=== PATIENT | male | born 1965 | race Caucasian/White ===

== ENCOUNTER 2017-08-24 11:56 | Emergency (ER) | payer BC ==
[~2017-08-24] VITALS: Ht 177.8 cm; Wt 98.0 kg
[~2017-08-24 11:56] MED LIST: INDO-24 PO; LANS15CA6 PO; METO25TA3 PO; PPTBS PO
[2017-08-24 12:15] VITALS: TEMP 37.4; Ht 177.8 cm; Wt 98.0 kg
[2017-08-24] MEDS ORDERED: KETOROLAC TROMETHAMINE 60 MG/2 ML VIAL IM STA (12:37)
[2017-08-24] MEDS ORDERED: OXYCODONE HCL IR 5 MG TAB (IMMEDIATE RELEASE) PO STA (12:37)
[2017-08-24] MEDS ORDERED: DEXAMETHASONE SOD INJ 10 MG/ML VIAL IM ONE (12:45)
[2017-08-24] MEDS ORDERED: TRAM-10 PO (12:48)
[2017-08-24] MEDS ORDERED: LISI-461 PO (12:48)
[2017-08-24] MEDS ORDERED: CYCL10TA6 PO (12:48)
--- NOTE | 2017-08-24 13:23 | DIAGNOSTIC IMAGING REPORT ---
L-SPINE MIN 4 VIEWS ROUTINE CLINICAL HISTORY: Left back pain COMPARISON STUDY: No previous studies for comparison. FINDINGS: No acute fractures or subluxations are visualized. There is a 5 mm calcification within the left mid abdomen at the L2 level. Given the history of back pain this may represent a proximal left ureteral calculus. CT scanning could be obtained for confirmation as deemed clinically necessary. There is no pathologic bowel dilatation. IMPRESSION: 1. No fractures or subluxations identified 2. 5 mm calcification at the L2 level. Given the history of left-sided pain, this may represent a proximal left ureteral calculus . Electronically signed by: Brock Blackwood M.D. 08/24/2017 1:22 PM Dictated Date/Time: 08/24/2017 1:20 PM
[2017-08-24] MEDS ORDERED: MoRPHine SULFATE 10 MG/ML CARP/VIAL IV STA (13:38)
[2017-08-24] MEDS ORDERED: TAMSULOSIN HCL 0.4 MG CAP PO ONE (13:45)
[2017-08-24] MEDS ORDERED: SODIUM CHLORIDE 0.9% 1000ML 1,000 ML IV STA (13:46)
[2017-08-24] MEDS ORDERED: ONDANSETRON INJ 2 MG/ML 2 ML VIAL IV STA (13:46)
[2017-08-24 13:58] LABS: BASO % 0.5 %; BASO ABS # 0.05 K/uL (0-0.2); COMPLETE YES; EOS % 3.4 %; HEMATOCRIT 46.1 % (42-52); IG% 0.2 %; LYMPH % 23.2 %; LYMPH ABS # 2.19 K/uL (1.2-3.4); MEAN CELL VOLUME 84.3 fL (80-100); MEAN CORPUSCULAR HEMOGLOBIN 29.8 pg (25-34); MEAN CORPUSCULAR HGB CONC 35.4 g/dl (32-36); MEAN PLATELET VOLUME 9.4 fL (7.4-10.4); MONO % 8.6 %; NEUT % 64.1 %; PLATELET COUNT 224 K/uL (130-400); RED BLOOD COUNT 5.47 M/uL (4.7-6.1); WHITE BLOOD COUNT 9.45 K/uL (4.8-10.8)
[2017-08-24 14:18] LABS: BUN/CREATININE RATIO 10.2 (10-20); CALCIUM 8.8 mg/dl (8.5-10.1); CREATININE 1.25 mg/dl (0.60-1.40)
--- NOTE | 2017-08-24 14:28 | DIAGNOSTIC IMAGING REPORT ---
CT SCAN OF THE ABDOMEN AND PELVIS WITHOUT CONTRAST CLINICAL HISTORY: Left flank pain COMPARISON STUDY: 02/26/2015 TECHNIQUE: CT scan of the abdomen and pelvis was performed from the lung bases to the proximal femurs. Images are reviewed in the axial, sagittal, and coronal planes. IV contrast was not administered for this examination. A dose lowering technique was utilized adhering to the principles of ALARA. CT DOSE: 1086.92 mGycm FINDINGS: Lower chest: The heart is normal in size and configuration, without pericardial effusion. The lung bases and pleural spaces are clear. Liver: There is hepatic steatosis. No focal masses are visualized Gallbladder: Unremarkable. Spleen: Normal in size and attenuation. Pancreas: Unremarkable. Adrenal glands: Unremarkable. Kidneys: There are punctate left renal calculi. There is a 5 mm calculus at the level the left ureteropelvic junction. Multiple punctate right renal calculi are also evident. Bowel: There are no transition zones indicate bowel obstruction. There is colonic diverticulosis. There are no acute peridiverticular inflammatory changes. There are no findings to indicate acute appendicitis. The appendix appears normal. Peritoneum: There is no intraperitoneal free air or abdominal ascites. There is a small fat-containing left inguinal hernia. Vasculature: The abdominal aorta is normal in course and caliber. Adenopathy: None. Pelvic viscera: The bladder, and pelvic viscera are unremarkable. Skeletal structures: No destructive osseous lesions are seen. IMPRESSION: 1. Bilateral nephrolithiasis 2. 5 mm calculus at the level of the left ureteropelvic junction. No significant hydronephrosis 3. No evidence of bowel obstruction. No evidence of free air 4. Normal appendix 5. Hepatic steatosis Electronically signed by: Brock Blackwood M.D. 08/24/2017 2:27 PM Dictated Date/Time: 08/24/2017 2:23 PM
[2017-08-24] MEDS ORDERED: TAMS0.4C38 PO (15:21)
[2017-08-24] MEDS ORDERED: ONDA4TAB10 SL (15:21)
[2017-08-24] MEDS ORDERED: OXYC1TAB3 PO (15:21)
--- NOTE | 2017-08-24 15:23 | EMERGENCY ROOM VISIT NOTE ---
History First contact with patient: 12:31 Chief Complaint: BACK PAIN Stated Complaint: BACK OUT History of Present Illness The patient is a 52 year old male who presents to the Emergency Room with complaints of left-sided low back pain. The patient states that he just bent over today and felt a "pop" in his back. Since that time he has pain in the left side of his back into his buttocks. The patient states that he took 2 tramadol and Flexeril 4-5 hours ago without any relief of the pain. He rates it at a 10 out of 10. The patient denies any pain radiating down to his toes or any numbness and tingling. The patient denies any nausea or vomiting or any abdominal pain. The patient denies any urinary symptoms of frequency, urgency, dysuria or hematuria. The patient denies any history of back surgery or any history of kidney stones. Review of Systems 10 system review was performed and was negative unless stated otherwise history of present illness. Past Medical/Surgical History Medical Problems: (1) Diverticulitis of sigmoid colon (2) Esophageal Reflux (3) Gastroesophageal reflux disease (4) Hypercholesterolemia (5) Hypertension Nos (6) Normal colonoscopy Surgical Problems: (1) H/O colectomy Family History Cancer FH: diabetes mellitus FH: hypertension Gallbladder disease Heart disease Social History Smoking Status: Never Smoker Alcohol Use: none Marital Status: Housing Status: lives with family Occupation Status: employed Current/Historical Medications Scheduled Lansoprazole (Prevacid), 15 MG PO QAM Lisinopril (Lisinopril), 10 MG PO DAILY Scheduled PRN Bismuth Subsalicylate (Pepto-Bismol Susp), 30 ML PO PRN UD PRN for Diarrhea Cyclobenzaprine Hcl (Flexeril), 10 MG PO TID PRN for Muscle Spasms Metoprolol Succ (Toprol Xl) (Toprol-Xl), 25 MG PO DAILY PRN for Tramadol (Ultram), 100 MG PO Q4H PRN for Pain Physical Exam Vital Signs Date Time Temp Pulse Resp B/P (MAP) Pulse Ox O2 Delivery O2 Flow Rate FiO2 08/24/17 14:35 94 18 129/88 94 08/24/17 12:15 37.4 115 18 141/103 97 Room Air Physical Exam GENERAL: 52-year-old white male appears uncomfortable secondary to pain. MENTAL Status: Alert and oriented 3. MOUTH: Mucosa is moist NECK: Supple, no lymphadenopathy noted. No carotid bruits noted. LUNGS: Clear auscultation without wheezes rales or rhonchi. CARDIAC: Regular rate and rhythm without murmur. Pulses is full and equal throughout. BACK: No CVA tenderness noted. ABDOMEN: Positive bowel sounds all 4 quadrants. Soft, nontender to palpation without organomegaly or masses. LUMBAR SPINE: No gross bony deformity noted. The patient has mild tenderness palpation over the left paravertebral region. Right side nontender. Cannot assess range of motion secondary to patient's pain. Negative straight leg raise bilaterally. Bilateral patellar reflexes are 2+. EXTREMITIES: No cyanosis or edema noted. Medical Decision & Procedures ER Provider Diagnostic Interpretation: CT SCAN OF THE ABDOMEN AND PELVIS WITHOUT CONTRAST CLINICAL HISTORY: Left flank pain COMPARISON STUDY: 02/26/2015 TECHNIQUE: CT scan of the abdomen and pelvis was performed from the lung bases to the proximal femurs. Images are reviewed in the axial, sagittal, and coronal planes. IV contrast was not administered for this examination. A dose lowering technique was utilized adhering to the principles of ALARA. CT DOSE: 1086.92 mGycm FINDINGS: Lower chest: The heart is normal in size and configuration, without pericardial effusion. The lung bases and pleural spaces are clear. Liver: There is hepatic steatosis. No focal masses are visualized Gallbladder: Unremarkable. Spleen: Normal in size and attenuation. Pancreas: Unremarkable. Adrenal glands: Unremarkable. Kidneys: There are punctate left renal calculi. There is a 5 mm calculus at the level the left ureteropelvic junction. Multiple punctate right renal calculi are also evident. Bowel: There are no transition zones indicate bowel obstruction. There is colonic diverticulosis. There are no acute peridiverticular inflammatory changes. There are no findings to indicate acute appendicitis. The appendix appears normal. Peritoneum: There is no intraperitoneal free air or abdominal ascites. There is a small fat-containing left inguinal hernia. Vasculature: The abdominal aorta is normal in course and caliber. Adenopathy: None. Pelvic viscera: The bladder, and pelvic viscera are unremarkable. Skeletal structures: No destructive osseous lesions are seen. IMPRESSION: 1. Bilateral nephrolithiasis 2. 5 mm calculus at the level of the left ureteropelvic junction. No significant hydronephrosis 3. No evidence of bowel obstruction. No evidence of free air 4. Normal appendix 5. Hepatic steatosis Electronically signed by: Brock Blackwood M.D. 08/24/2017 2:27 PM L-SPINE MIN 4 VIEWS ROUTINE CLINICAL HISTORY: Left back pain COMPARISON STUDY: No previous studies for comparison. FINDINGS: No acute fractures or subluxations are visualized. There is a 5 mm calcification within the left mid abdomen at the L2 level. Given the history of back pain this may represent a proximal left ureteral calculus. CT scanning could be obtained for confirmation as deemed clinically necessary. There is no pathologic bowel dilatation. IMPRESSION: 1. No fractures or subluxations identified 2. 5 mm calcification at the L2 level. Given the history of left-sided pain, this may represent a proximal left ureteral calculus . Electronically signed by: Brock Blackwood M.D. 08/24/2017 1:22 PM Laboratory Results 08/24/17 13:50 Red Blood Count 5.47, Mean Corpuscular Volume 84.3, Mean Corpuscular Hemoglobin 29.8, Mean Corpuscular Hemoglobin Concent 35.4, Mean Platelet Volume 9.4, Neutrophils (%) (Auto) 64.1, Lymphocytes (%) (Auto) 23.2, Monocytes (%) (Auto) 8.6, Eosinophils (%) (Auto) 3.4, Basophils (%) (Auto) 0.5, Neutrophils # (Auto) 6.06, Lymphocytes # (Auto) 2.19, Monocytes # (Auto) 0.81, Eosinophils # (Auto) 0.32, Basophils # (Auto) 0.05 08/24/17 13:50 Test 08/24/17 13:50 White Blood Count 9.45 K/uL (4.8-10.8) Red Blood Count 5.47 M/uL (4.7-6.1) Hemoglobin 16.3 g/dL (14.0-18.0) Hematocrit 46.1 % (42-52) Mean Corpuscular Volume 84.3 fL (80-100) Mean Corpuscular Hemoglobin 29.8 pg (25-34) Mean Corpuscular Hemoglobin Concent 35.4 g/dl (32-36) Platelet Count 224 K/uL (130-400) Mean Platelet Volume 9.4 fL (7.4-10.4) Neutrophils (%) (Auto) 64.1 % Lymphocytes (%) (Auto) 23.2 % Monocytes (%) (Auto) 8.6 % Eosinophils (%) (Auto) 3.4 % Basophils (%) (Auto) 0.5 % Neutrophils # (Auto) 6.06 K/uL (1.4-6.5) Lymphocytes # (Auto) 2.19 K/uL (1.2-3.4) Monocytes # (Auto) 0.81 K/uL (0.11-0.59) Eosinophils # (Auto) 0.32 K/uL (0-0.5) Basophils # (Auto) 0.05 K/uL (0-0.2) RDW Standard Deviation 41.1 fL (36.4-46.3) RDW Coefficient of Variation 13.4 % (11.5-14.5) Immature Granulocyte % (Auto) 0.2 % Immature Granulocyte # (Auto) 0.02 K/uL (0.00-0.02) Anion Gap 7.0 mmol/L (3-11) Est Creatinine Clear Calc Drug Dose 82.1 ml/min Estimated GFR () 76.8 Estimated GFR (Non- 66.2 BUN/Creatinine Ratio 10.2 (10-20) Calcium Level 8.8 mg/dl (8.5-10.1) Medications Administered Medications (Trade) Dose Ordered Sig/Iris Route Start Time Stop Time Status Last Admin Dose Admin Dexamethasone Sodium Phosphate (Decadron Inj) 10 mg NOW ONCE IM 08/24/17 12:45 08/24/17 12:46 DC 08/24/17 12:52 10 MG Ketorolac Tromethamine (Toradol Inj) 60 mg NOW STAT IM 08/24/17 12:37 08/24/17 12:39 DC 08/24/17 12:52 60 MG Oxycodone HCl (Roxicodone Immediate Rel Tab) 10 mg NOW STAT PO 08/24/17 12:37 08/24/17 12:39 DC 08/24/17 12:53 10 MG Morphine Sulfate (MoRPHine SULFATE INJ) 6 mg NOW STAT IV 08/24/17 13:38 08/24/17 13:40 DC 08/24/17 13:57 6 MG Tamsulosin HCl (Flomax Cap) 0.4 mg NOW ONCE PO 08/24/17 13:45 10/22/17 13:46 DC 08/24/17 13:56 0.4 MG Sodium Chloride 1,000 ml @ 999 mls/hr Q1H1M STAT IV 08/24/17 13:46 08/24/17 14:46 DC 08/24/17 13:46 999 MLS/HR Ondansetron HCl (Zofran Inj) 4 mg NOW STAT IV 08/24/17 13:46 08/24/17 13:47 DC 08/24/17 13:56 4 MG ED Course The patient was evaluated. The patient was given Decadron 10 mg IM and Toradol 60 mg IM and OxyIR 10 mg by mouth for pain. X-ray of the lumbar spine was ordered interpreted by the radiologist as above with findings consistent with a possible left ureteral calculi. The patient was reevaluated and was not feeling any better. I told him of the x-ray findings. IV access was obtained. CBC and differential, renal profile was ordered. Urinalysis was ordered. The patient was given Flomax 0.4 mg by mouth, Zofran 4 mg IV push and morphine [address] stone study was ordered and interpreted by the radiologist as above with a 5 mm stone at the left UP junction without any hydronephrosis noted . labs are reviewed and were unremarkable. The patient was unable to give a urine sample while in the ER. The patient was reevaluated on several occasion. The patient was feeling better at time of discharge. He was discharged home with his driving. Medical Decision Differential diagnosis include lumbar strain, UTI, pyelonephritis, ureteral calculi, compression fracture, spinal stenosis, sciatica [place] Drug Monitoring Program Search Results: patient reviewed within database Medication Reconcilliation Current Medication List: was personally reviewed by ks Blood Pressure Screening Patient's blood pressure: Normal blood pressure Impression Primary Impression: Kidney stone on left side Departure Information Dispostion Home / Self-Care Condition GOOD Prescriptions Ondasetron Odt (ZOFRAN ODT) 4 Mg Tab 4 MG SL Q6H for Nausea, #10 TAB Prov: Lisa Curtis PA-C 08/24/17 Oxycodone Immediate Rel Tab (ROXICODONE IR) 5 Mg Tab 1-2 TAB PO Q4H Y for Pain, #24 TAB Prov: Lisa Crutis PA-C 08/24/17 Tamsulosin Hcl (FLOMAX) 0.4 Mg Cap 0.4 MG PO DAILY for 7 Days, #7 CAP Prov: Lisa Curtis PA-C 08/24/17 Referrals Grayson Guzmán M.D. (PCP) Drew Vogel M.D. Forms HOME CARE DOCUMENTATION FORM, IMPORTANT VISIT INFORMATION Patient Instructions Kidney Stones - [facility], [facility], Later [facility] Additional Instructions Drink a lot of water. Ibuprofen 6 mg every 6 hours with food for pain. Take OxyIR as directed for more severe pain. Do not drive while taking the OxyIR. Take Flomax daily as directed. Strain all urine. Call Dr. Vogel tomorrow for follow-up appointment. If you experience any intractable low back pain, uncontrolled nausea vomiting, fevers return to ER immediately.
[2017-08-24 15:36] VITALS: BP 159/92; PULSE 96; O2SAT 97
[2017-09-05] MEDS ORDERED: ONDA4TAB65 PO (07:34)
[2017-09-05] MEDS ORDERED: OXYC1TAB3 PO ×2 (07:40→07:44)
[2017-09-12] MEDS ORDERED: OXYC7.5T65 PO (07:39)
== END 2017-08-24 15:38 | disposition home or self-care (01) ==
LOC: C.EDB 11:57 → C.EDD 15:38
DX: N20.0 Calculus of kidney (principal); K21.9 Gastro-esophageal reflux disease without esophagitis; E78.5 Hyperlipidemia, unspecified; I10 Essential (primary) hypertension; Z90.49 Acquired absence of other specified parts of digestive tract; Z83.3 Family history of diabetes mellitus; Z82.49 Family history of ischemic heart disease and other diseases of the circulatory system

== ENCOUNTER → 2017-08-27 | Outpatient (CLI) | payer BC ==
[~2017-08-27] MED LIST changes: +CYCL10TA6 PO; -INDO-24 PO; +LISI-461 PO; +ONDA4TAB10 SL; +OXYC1TAB3 PO; +TAMS0.4C38 PO; +TRAM-10 PO
--- NOTE | 2017-08-27 12:26 | DIAGNOSTIC IMAGING REPORT ---
CHEST 2 VIEWS ROUTINE CLINICAL HISTORY: N20.0 Calculus of [id number] nephrocalcinosis. Preoperative evaluation. COMPARISON STUDY: 05/10/2015 FINDINGS: The bones soft tissues and hemidiaphragms are normal. The cardiomediastinal silhouette is normal. The lungs are clear. The pulmonary vasculature is normal. IMPRESSION: Negative chest. The above report was generated using voice recognition software. It may contain grammatical, syntax or spelling errors. Electronically signed by: Kulwinder Curtis M.D. 08/27/2017 12:25 PM Dictated Date/Time: 08/27/2017 12:24 PM
== END | disposition home or self-care (01) ==
LOC: C.CPL 11:52
PROVIDERS: ATTEND Urology
DX: N20.0 Calculus of kidney (principal)

== ENCOUNTER → 2017-09-11 | Outpatient (CLI) | payer BC ==
[~2017-09-11] MED LIST changes: -CYCL10TA6 PO; -ONDA4TAB10 SL; +ONDA4TAB65 PO; +OXYC7.5T65 PO; -PPTBS PO; -TAMS0.4C38 PO; -TRAM-10 PO
--- NOTE | 2017-09-11 18:39 | DIAGNOSTIC IMAGING REPORT ---
KUB CLINICAL HISTORY: Nephrolithiasis. FINDINGS: 2 AP supine abdominal radiographs are correlated with abdominal CT dated 08/24/2017. There is a nonobstructed abdominal bowel gas pattern. Mild to moderate colonic fecal retention is observed. There is a 7 mm calculus projecting over the left proximal ureter at the level of the L2 transverse process. At least 2 additional punctate calculi are seen projecting over the left kidney. A punctate calculus is also seen projecting over the lower pole of the right kidney. The bony structures appear intact. IMPRESSION: 1. A 7 mm calculus projects over the left proximal ureter at the level of the L2 transverse process. 2. Additional punctate calculi are noted in both kidneys. Electronically signed by: Navin Lynn M.D. 09/11/2017 6:38 PM Dictated Date/Time: 09/11/2017 6:36 PM
== END | disposition home or self-care (01) ==
LOC: C.RAD 18:03
PROVIDERS: ATTEND Urology
DX: N20.2 Calculus of kidney with calculus of ureter (principal)

== ENCOUNTER → 2017-09-12 | Day surgery (SDC) | payer BC ==
[2017-09-05 07:35] VITALS: Ht 177.8 cm; Wt 97.7 kg
[~2017-09-12] VITALS: Ht 177.8 cm; Wt 97.7 kg
[~2017-09-12] MED LIST changes: +ATROPINE SULFATE 0.1 MG/ML 5ML SYR IV PRN; +CIPROFLOXACIN 400MG / D5W IV SCH; +EpHEDrine SULFATE INJ 50 MG/ML AMP IV PRN; +FENTANYL CITRATE INJ 50 MCG/1 ML 2 ML VIAL ONE; +HydrALAZINE HCL 20 MG/ML VIAL IV. STA; +HydrALAZINE HCL 20 MG/ML VIAL ONE; +LACTATED RINGER'S 1000ML 1,000 ML IV SCH; +LIDOCAINE HCL 2% 2 ML VIAL (20MG/ML) ONE; +MIDAZOLAM HCL 1 MG/ML 2ML VIAL ONE; +ONDANSETRON INJ 2 MG/ML 2 ML VIAL IV PRN; +OXYCODONE/ACETAMINOPHEN 5-325 TAB PO PRN; +PROPOFOL IV EMULSION 10 MG/ML 20 ML VIAL IV ONE
--- NOTE | 2017-09-12 06:54 | History & Physical Bridge Note ---
H&P Re-Evaluation Bridge Note: I have examined the patient, reviewed the History & Physical and in the interval since the performance of the History & Physical I have noted the following changes of clinical significance: No changes noted
--- NOTE | 2017-09-12 07:42 | Discharge Instructions ---
Discharge Instructions Date of Service Sep 12, 2017. Admission Reason for Admission: Stones Discharge Discharge Diagnosis / Problem: L upper ureteral stone s/p ESWL Discharge Goals Goal(s): Decrease discomfort, Improve function, Improve disease control, Therapeutic intervention Activity Recommendations Activity Limitations: as noted below Lifting Limitations: no more than 25 pounds, gradually increase as tolerated Exercise/Sports Limitations: rest today, gradually increase as tolerated May Resume Sexual Activity: when tolerated Shower/Bathe: no limitations Driving or Machine Use: resume 1 day after discharge . Instructions / Follow-Up Instructions / Follow-Up As scheduled in office with KUB Xray beforehand Discharge Diet Recommended Diet: Regular Diet (good fluid intake) Procedures Procedures Performed: Left Extracorporeal Shock Wave Lithotripsy - Ureteral Pending Studies Studies pending at discharge: yes List of pending studies: Follow-up KUB as ordered Medical Emergencies . Who to Call and When: Medical Emergencies: If at any time you feel your situation is an emergency, please call 911 immediately. . Non-Emergent Contact Non-Emergency issues call your: Urologist Call Non-Emergent contact if: you have a fever, temperature is above 101, your pain is not controlled, your pain is worsening, your pain is unusual for you, your pain is concerning you, you have any medication questions . . "Provider Documentation" section prepared by Tanner Madison. . VTE Core Measure Inpt VTE Proph given/why not?: SCD's [place] Drug Monitoring Program Search Results: patient reviewed within database, see additional documentation (2 Rx for narcotics over the past month for this stone - per patient he has taken them all, refill provided postop today)
--- NOTE | 2017-09-12 07:45 | [facility] Post Operative Brief Note ---
Immediate Operative Summary Operative Date Sep 12, 2017. Pre-Operative Diagnosis Left ureteral stone Post-Operative Diagnosis Same as pre-op Procedure(s) Performed Left Extracorporeal Shock Wave Lithotripsy - Ureteral Surgeon Dr. Tanner Madison Cosmetician Surgeon(s) None Estimated Blood Loss 0 mL Findings Good stone fragmentation on fluoro Specimens None Drains NA Anesthesia GALMA Complication(s) None Disposition Recovery Room / PACU
--- NOTE | 2017-09-12 07:54 | OPERATIVE REPORT ---
DATE OF OPERATION: 09/12/2017 PREOPERATIVE DIAGNOSIS: Left upper ureteral stone. POSTOPERATIVE DIAGNOSIS: Same. PROCEDURE: Left-sided upper ureteral extracorporeal shockwave lithotripsy. SURGEON: Tanner Madison MD. ELEVATOR SERVICE MECHANIC: None. ANESTHESIA: General anesthesia with laryngeal mask. COMPLICATIONS: None. FINDINGS: Good stone fragmentation on fluoroscopic imaging. DETAILS OF PROCEDURE: The patient was brought to the litho suite. He was correctly identified and the stone was visualized on his most recent x-rays. After the correct time out was performed the patient was positioned over the therapy head. An adequate level of anesthesia was administered. The extracorporeal shockwave lithotripsy treatment was then commenced. Please see the [place] [facility] Management sheet for complete treatment summary. After completion of the procedure the patient was taken to the recovery room in stable condition. I attest to the content of the Intraoperative Record and any orders documented therein. Any exception s are noted below.
[2017-09-12] MEDS: FENTANYL CITRATE INJ 50 MCG/1 ML 2 ML VIAL IV PRN ×2 (07:59→08:11)
[2017-09-12 08:42] VITALS: TEMP 36.4
[2017-09-12 09:25] VITALS: BP 153/87; PULSE 67; O2SAT 99
--- NOTE | 2017-09-12 09:30 | Anesthesia Progress Nt - [facility] ---
Anesthesia Post Op Note Date & Time Sep 12, 2017 at 09:30 Vital Signs Pain Intensity: 4 Vital Signs Past 12 Hours Date Time Temp Pulse Resp B/P (MAP) Pulse Ox O2 Delivery O2 Flow Rate FiO2 09/12/17 09:25 67 20 153/87 (109) 99 Room Air 09/12/17 08:42 36.4 79 16 119/79 (92) 96 Room Air 09/12/17 08:37 69 17 09/12/17 08:37 69 17 97 09/12/17 08:35 144/98 09/12/17 08:34 149/101 09/12/17 08:32 79 15 96 09/12/17 08:32 77 15 09/12/17 08:31 36.6 73 16 151/99 96 Room Air 09/12/17 08:30 151/99 09/12/17 08:27 72 13 09/12/17 08:27 74 13 95 09/12/17 08:26 74 15 144/100 95 09/12/17 08:26 75 15 09/12/17 08:21 79 14 09/12/17 08:21 81 14 149/101 95 09/12/17 08:19 157/104 09/12/17 08:16 78 14 153/107 97 09/12/17 08:16 78 14 09/12/17 08:13 37 79 16 153/107 96 Room Air 09/12/17 08:11 72 12 09/12/17 08:11 72 12 155/102 99 09/12/17 08:06 79 13 149/99 99 09/12/17 08:06 76 13 09/12/17 08:01 81 15 09/12/17 08:01 81 15 155/99 100 09/12/17 07:56 77 15 09/12/17 07:56 76 15 145/99 99 09/12/17 07:51 79 14 152/94 100 09/12/17 07:51 78 14 09/12/17 07:46 83 15 09/12/17 07:46 83 15 148/102 98 09/12/17 07:46 36.1 89 12 148/102 96 Mask 10 09/12/17 06:29 36.8 86 18 132/109 (117) 97 Room Air Notes Mental Status: alert / awake / arousable, participated in evaluation Pt Amnestic to Procedure: Yes Nausea / Vomiting: adequately controlled Pain: adequately controlled Airway Patency, RR, SpO2: stable & adequate BP & HR: stable & adequate Hydration State: stable & adequate Anesthetic Complications: no major complications apparent
== END | disposition home or self-care (01) ==
LOC: X.SURG 06:13
PROVIDERS: ATTEND Urology
DX: N20.1 Calculus of ureter (principal)

== ENCOUNTER → 2017-09-23 | Outpatient (CLI) | payer BC ==
[~2017-09-23] MED LIST changes: -ATROPINE SULFATE 0.1 MG/ML 5ML SYR IV PRN; -CIPROFLOXACIN 400MG / D5W IV SCH; -EpHEDrine SULFATE INJ 50 MG/ML AMP IV PRN; -FENTANYL CITRATE INJ 50 MCG/1 ML 2 ML VIAL ONE; -HydrALAZINE HCL 20 MG/ML VIAL IV. STA; -HydrALAZINE HCL 20 MG/ML VIAL ONE; -LACTATED RINGER'S 1000ML 1,000 ML IV SCH; -LIDOCAINE HCL 2% 2 ML VIAL (20MG/ML) ONE; -MIDAZOLAM HCL 1 MG/ML 2ML VIAL ONE; -ONDANSETRON INJ 2 MG/ML 2 ML VIAL IV PRN; -OXYCODONE/ACETAMINOPHEN 5-325 TAB PO PRN; -PROPOFOL IV EMULSION 10 MG/ML 20 ML VIAL IV ONE
--- NOTE | 2017-09-23 12:10 | DIAGNOSTIC IMAGING REPORT ---
KUB CLINICAL HISTORY: N20.0 Calculus of kidney COMPARISON STUDY: 09/11/2017 FINDINGS: There is no pathologic bowel dilatation. Punctate bilateral renal calculi are suspected. The previously described 7 mm proximal left ureteral calculus is no longer visualized. IMPRESSION: 1. Punctate bilateral renal calculi 2. The previously identified proximal left ureteral calculus is no longer visualized 3. No evidence of pathologic bowel dilatation Electronically signed by: Brock Blackwood M.D. 09/23/2017 12:09 PM Dictated Date/Time: 09/23/2017 12:06 PM
== END | disposition home or self-care (01) ==
LOC: C.RAD 10:27
PROVIDERS: ATTEND Urology
DX: N20.0 Calculus of kidney (principal)

== ENCOUNTER → 2017-09-24 | Outpatient (CLI) | payer BC | END | disposition home or self-care (01) | LOC: C.LABSPEC 17:30 | PROVIDERS: ATTEND Urology | DX: N20.0 Calculus of kidney (principal) ==

== ENCOUNTER 2018-01-21 10:11 | Emergency (ER) | payer BC, OTHER ==
[~2018-01-21] VITALS: Ht 177.8 cm; Wt 106.5 kg
[2018-01-21 10:16] VITALS: TEMP 36.8; Ht 177.8 cm; Wt 106.5 kg
[2018-01-21] MEDS ORDERED: HYDROmorphone INJ 1 MG/ML SYR IV STA ×3 (10:27→13:02)
[2018-01-21] MEDS ORDERED: ONDANSETRON INJ 2 MG/ML 2 ML VIAL IV STA (10:27)
[2018-01-21] MEDS ORDERED: SODIUM CHLORIDE 0.9% 1000ML 1,000 ML IV STA (10:27)
--- NOTE | 2018-01-21 10:40 | EMERGENCY ROOM VISIT NOTE ---
History Report prepared by Krystal: Deepa Rose Under the Supervision of: Dr. Sterling Joe M.D. First contact with patient: 10:22 Chief Complaint: KIDNEY STONE Stated Complaint: BACK PAIN, KIDNEY STONES, PEEING BLOOD History of Present Illness The patient is a 52 year old male who presents to the Emergency Room with complaints of worsening left flank pain beginning this morning. He has a history of kidney stones and states that this feels like his typical kidney stone. He has had lithotripsy in the past. He had a routine appointment scheduled with his urologist yesterday but cancelled it. This morning he woke up with left flank pain radiating down into his left abdomen and left testicle. The patient rates his current pain as an 8/10 in severity. He is also experiencing nausea, diarrhea, and hematuria. He denies fevers, vomiting, dysuria, and any personal history of kidney failure. He has not taken anything for his pain today. Source of History: patient Onset: this morning Position: other (left flank) Symptom Intensity: 8/10 Quality: other (radiating) Timing: worsening Associated Symptoms: + nausea, + abdominal pain, + diarrhea, + urinary symptoms, No vomiting Review of Systems See HPI for pertinent positives & negatives. A total of 10 systems reviewed and were otherwise negative. Past Medical & Surgical Medical Problems: (1) Diverticulitis of sigmoid colon (2) Esophageal Reflux (3) Gastroesophageal reflux disease (4) Hypercholesterolemia (5) Hypertension Nos (6) Normal colonoscopy Surgical Problems: (1) H/O colectomy Family History Cancer FH: diabetes mellitus FH: hypertension Gallbladder disease Heart disease Social History Smoking Status: Never Smoker Alcohol Use: none Marital Status: Housing Status: lives with family Occupation Status: employed Current/Historical Medications Scheduled Lansoprazole (Prevacid), 15 MG PO QAM Lisinopril (Lisinopril), 10 MG PO QAM Ondasetron Odt (Zofran Odt), 4-8 MG SL Q6H Tamsulosin Hcl (Flomax), 0.4 MG PO DAILY Scheduled PRN Metoprolol Succ (Toprol Xl) (Toprol-Xl), 25 MG PO DAILY PRN for Migraine Ondansetron Hcl (Zofran), 4 MG PO Q8H PRN for Nausea Oxycodone Immediate Rel Tab (Roxicodone Ir), 1-2 TAB PO Q4H PRN for Severe Pain Allergies Coded Allergies: No Known Allergies (Unverified , 09/12/17) Physical Exam Vital Signs Date Time Temp Pulse Resp B/P (MAP) Pulse Ox O2 Delivery O2 Flow Rate FiO2 01/21/18 14:18 78 20 166/90 96 01/21/18 13:38 78 16 133/72 94 Room Air 01/21/18 13:33 81 01/21/18 12:29 80 20 125/69 95 Room Air 01/21/18 11:47 82 16 121/82 96 Room Air 01/21/18 11:05 96 24 145/98 98 Room Air 01/21/18 10:55 94 20 142/89 97 Room Air 01/21/18 10:54 98 Room Air 01/21/18 10:52 86 01/21/18 10:16 36.8 99 18 163/107 97 Room Air Physical Exam GENERAL: Patient is uncomfortable appearing and in moderate distress. EYES: No scleral icterus, unremarkable pupils. ENT: Mucous membranes moist, no nasal congestion. NECK: No masses appreciated, no meningismus, trachea is midline. RESPIRATORY: No dyspnea. Clear to auscultation and equal bilaterally. No wheeze , no rhonchi. CARDIOVASCULAR: Regular rate and rhythm. No murmurs, rubs, gallops appreciated. GASTROINTESTINAL: Abdomen soft, nontender, no peritonitis. Bowel sounds positive. No masses appreciated. BACK: No midline tenderness, no CVA tenderness EXTREMITIES: Normal motion all extremities, no cyanosis, no edema. NEUROLOGIC: Alert and oriented, no acute motor or sensory deficits, no focal weakness, cranial nerves grossly intact. SKIN: No rash, no jaundice, no diaphoresis. Medical Decision & Procedures ER Provider Diagnostic Interpretation: Radiology results and stated below per my review and radiologist interpretation: EXAMINATION: RENAL ULTRASOUND CLINICAL HISTORY: left flank pain, known stone in left kidney COMPARISON STUDY: CT scan dated 08/24/2017 FINDINGS: The right kidney measures 10.1 cm. The left kidney measures 10.6 cm. There is no evidence of hydronephrosis. No renal masses are visualized. There are tiny echogenic foci within each kidney suspicious for calculi. There is suspected hepatic steatosis. No bladder abnormalities are visualized. Bilateral ureteral jets were visualized. IMPRESSION : 1. Bilateral nephrolithiasis 2. No evidence of hydronephrosis Electronically signed by: Brock Blackwood M.D. 01/21/2018 11:41 AM Dictated Date/Time: 01/21/2018 11:39 AM KUB CLINICAL HISTORY: 52 years-old Male presenting with left flank pain. TECHNIQUE: Single supine view of the abdomen was obtained. COMPARISON: 09/23/[address] from 08/24/2017. FINDINGS: Nonobstructive bowel gas pattern. No gross pneumoperitoneum. Allowing for bowel gas and stool, previously noted calcifications are not apparent on the current radiograph. No calcifications along the courses of the ureters to suggest ureteral calculi. Osseous structures normal. Lung bases clear. IMPRESSION: 1. Nonvisualization of the previously reported bilateral punctate renal calculi. No radiographic evidence of ureteral calculi. If there is continuing concern, CT could be obtained. Electronically signed by: Ketan Samuel M.D. 01/21/2018 11:24 AM Dictated Date/Time: 01/21/2018 11:22 AM Laboratory Results 01/21/18 10:45 Red Blood Count 5.18, Mean Corpuscular Volume 83.8, Mean Corpuscular Hemoglobin 29.7, Mean Corpuscular Hemoglobin Concent 35.5, Mean Platelet Volume 9.7, Neutrophils (%) (Auto) 62.8, Lymphocytes (%) (Auto) 26.2, Monocytes (%) (Auto) 8.3, Eosinophils (%) (Auto) 1.9, Basophils (%) (Auto) 0.4, Neutrophils # (Auto) 4.62, Lymphocytes # (Auto) 1.93, Monocytes # (Auto) 0.61, Eosinophils # (Auto) 0.14, Basophils # (Auto) 0.03 01/21/18 10:45 Test 01/21/18 10:45 White Blood Count 7.36 K/uL (4.8-10.8) Red Blood Count 5.18 M/uL (4.7-6.1) Hemoglobin 15.4 g/dL (14.0-18.0) Hematocrit 43.4 % (42-52) Mean Corpuscular Volume 83.8 fL (80-100) Mean Corpuscular Hemoglobin 29.7 pg (25-34) Mean Corpuscular Hemoglobin Concent 35.5 g/dl (32-36) Platelet Count 211 K/uL (130-400) Mean Platelet Volume 9.7 fL (7.4-10.4) Neutrophils (%) (Auto) 62.8 % Lymphocytes (%) (Auto) 26.2 % Monocytes (%) (Auto) 8.3 % Eosinophils (%) (Auto) 1.9 % Basophils (%) (Auto) 0.4 % Neutrophils # (Auto) 4.62 K/uL (1.4-6.5) Lymphocytes # (Auto) 1.93 K/uL (1.2-3.4) Monocytes # (Auto) 0.61 K/uL (0.11-0.59) Eosinophils # (Auto) 0.14 K/uL (0-0.5) Basophils # (Auto) 0.03 K/uL (0-0.2) RDW Standard Deviation 40.0 fL (36.4-46.3) RDW Coefficient of Variation 13.2 % (11.5-14.5) Immature Granulocyte % (Auto) 0.4 % Immature Granulocyte # (Auto) 0.03 K/uL (0.00-0.02) Urine Color ORANGE Urine Appearance CLOUDY (CLEAR) Urine pH 5.5 (4.5-7.5) Urine Specific [place] 1.019 (1.000-1.030) Urine Protein 1+ (NEG) Urine Glucose (UA) NEG (NEG) Urine Ketones NEG (NEG) Urine Occult Blood 3+ (NEG) Urine Nitrite NEG (NEG) Urine Bilirubin NEG (NEG) Urine Urobilinogen NEG (NEG) Urine Leukocyte Esterase SMALL (NEG) Urine WBC (Auto) 1-5 /hpf (0-5) Urine RBC (Auto) >30 /hpf (0-4) Urine Hyaline Casts (Auto) 1-5 /lpf (0-5) Urine Epithelial Cells (Auto) 5-10 /lpf (0-5) Urine Bacteria (Auto) NEG (NEG) Anion Gap 7.0 mmol/L (3-11) Est Creatinine Clear Calc Drug Dose 89.0 ml/min Estimated GFR () 80.7 Estimated GFR (Non- 69.6 BUN/Creatinine Ratio 10.0 (10-20) Calcium Level 8.6 mg/dl (8.5-10.1) Total Bilirubin 0.4 mg/dl (0.2-1) Direct Bilirubin 0.1 mg/dl (0-0.2) Aspartate Amino Transf (AST/SGOT) 28 U/L (15-37) Alanine Aminotransferase (ALT/SGPT) 42 U/L (12-78) Alkaline Phosphatase 70 U/L (45-117) Total Protein 7.3 gm/dl (6.4-8.2) Albumin 3.9 gm/dl (3.4-5.0) Lipase 174 U/L (73-393) Laboratory results as reviewed by me. Medications Administered Medications (Trade) Dose Ordered Sig/Iris Route Start Time Stop Time Status Last Admin Dose Admin Hydromorphone HCl (Dilaudid Inj) 1 mg NOW STAT IV 01/21/18 10:27 01/21/18 10:29 DC 01/21/18 11:00 1 MG Ondansetron HCl (Zofran Inj) 4 mg NOW STAT IV 01/21/18 10:27 01/21/18 10:29 DC 01/21/18 10:59 4 MG Sodium Chloride 1,000 ml @ 999 mls/hr Q1H1M STAT IV 01/21/18 10:27 01/21/18 11:27 DC 01/21/18 10:27 999 MLS/HR Hydromorphone HCl (Dilaudid Inj) 1 mg NOW STAT IV 01/21/18 11:49 01/21/18 11:50 DC 01/21/18 11:59 1 MG Tamsulosin HCl (Flomax Cap) 0.4 mg NOW ONCE PO 01/21/18 13:15 01/21/18 13:16 DC 01/21/18 13:40 0.4 MG Hydromorphone HCl (Dilaudid Inj) 1 mg NOW STAT IV 01/21/18 13:02 01/21/18 13:03 DC 01/21/18 13:41 1 MG ED Course 1022: The patient was evaluated in room B11B. A complete history and physical exam was performed. 1027: NSS 1000 ml @ 999 mls/hr IV, Zofran 4 mg IV, Dilaudid 1 mg IV 1146: Upon reevaluation the patient is complaining of increasing pain. 1149: Dilaudid 1 mg IV 1259: The patient is complaining of worsening pain at this time. 1302: Dilaudid 1 mg IV 1315: Flomax 0.4 mg PO 1359: I reassessed the patient at this time. He is feeling better and resting comfortably. I discussed the results and treatment plan with the patient. I answered all pertaining questions that he had. He expressed understanding and verbalized agreement. The patient will be discharged home. Medical Decision Differential: Renal Colic, Pyelonephritis, Hydronephrosis, Appendicitis, Diverticulitis, Retroperitoneal Bleed/Infection, Aortic Pathology, MSK, Neurologic Pathology, amongst other pathologies entertained. 52 yr old male arrives with complaint of sudden onset left flank pain. Associated with hematuria. Known history of stones. No abdominal pain nor other symptoms. UA clearly bloody. US without hydro though some punctate stones seen. KUB without evidence large stone. He did require 3rd dose narcotics over multi hour period which seems reasonable given this is presumed ureteral stone passing. No evidence infectious etiology. Exam not consistent with appy nor diverticulitis. No reason to suspect bleed nor aortic issue and neuro he is intact. Other labs look good without evidence of renal failure. Stable and breathing comfortably. He wishes to try outpatient monitoring and to avoid excessive testing (ie CT scan). We discussed at length symptoms to monitor for. Cautioned about Flomax, Oxy IR. [place] Drug Monitoring Program Search Results: patient reviewed within database Drug Monitoring Findings: Patient has received periodic narcotic prescriptions over the past year. Medication Reconcilliation Current Medication List: was personally reviewed by me Blood Pressure Screening Patient's blood pressure: Elevated blood pressure Blood pressure disposition: Elevated BP felt to be situational Impression Primary Impression: Left flank pain Additional Impression: Hematuria Scribe Attestation The scribe's documentation has been prepared under my direction and personally reviewed by me in its entirety. I confirm that the note above accurately reflects all work, treatment, procedures, and medical decision making performed by me. Departure Information Dispostion Home / Self-Care Prescriptions Ondasetron Odt (ZOFRAN ODT) 4 Mg Tab 4-8 MG SL Q6H for Nausea, #12 TAB Prov: Sterling Joe M.D. 01/21/18 Tamsulosin Hcl (FLOMAX) 0.4 Mg Cap 0.4 MG PO DAILY, #5 CAP Prov: Sterling Joe M.D. 01/21/18 Oxycodone Immediate Rel Tab (ROXICODONE IR) 5 Mg Tab 1-2 TAB PO Q4H Y for Severe Pain, #20 TAB Prov: Sterling Joe M.D. 01/21/18 Referrals Grayson Guzmán M.D. (PCP) Forms HOME CARE DOCUMENTATION FORM, IMPORTANT VISIT INFORMATION Patient Instructions My [facility] [place] Additional Instructions It is likely the pain you are having along with the blood in your urine is due to a kidney stone. Rest and keep well hydrated over the next 48-72 hours. Avoid exertion and things that could make you dehydrated. Return if fevers, vomiting, increasing pain, passing out, abdominal pain, burning with urination or other concerns. It would be reasonable to follow up with Urology for further evaluation. You have received a narcotic pain medication prescription. These medications may cause drowsiness and should not be used with other sedative medications. Do not drive, drink alcohol, perform dangerous activities, nor make important decisions after taking these medications. residential use or inappropriate use may lead to addiction. Problem Qualifiers
[2018-01-21 10:54] VITALS: O2SAT 98
[2018-01-21 11:16] LABS: BASO % 0.4 %; BASO ABS # 0.03 K/uL (0-0.2); EOS % 1.9 %; EOS ABS # 0.14 K/uL (0-0.5); HEMATOCRIT 43.4 % (42-52); HEMOGLOBIN 15.4 g/dL (14.0-18.0); IG# 0.03 K/uL (0.00-0.02); LYMPH % 26.2 %; LYMPH ABS # 1.93 K/uL (1.2-3.4); MEAN CELL VOLUME 83.8 fL (80-100); MEAN CORPUSCULAR HEMOGLOBIN 29.7 pg (25-34); MEAN CORPUSCULAR HGB CONC 35.5 g/dl (32-36); MEAN PLATELET VOLUME 9.7 fL (7.4-10.4); MONO % 8.3 %; MONO ABS # 0.61 K/uL (0.11-0.59); NEUT % 62.8 %; NEUT ABS # 4.62 K/uL (1.4-6.5); PLATELET COUNT 211 K/uL (130-400); RED CELL DISTRIBUTION WIDTH CV 13.2 % (11.5-14.5); WHITE BLOOD COUNT 7.36 K/uL (4.8-10.8)
--- NOTE | 2018-01-21 11:25 | DIAGNOSTIC IMAGING REPORT ---
KUB CLINICAL HISTORY: 52 years-old Male presenting with left flank pain. TECHNIQUE: Single supine view of the abdomen was obtained. COMPARISON: 09/23/[address] from 08/24/2017. FINDINGS: Nonobstructive bowel gas pattern. No gross pneumoperitoneum. Allowing for bowel gas and stool, previously noted calcifications are not apparent on the current radiograph. No calcifications along the courses of the ureters to suggest ureteral calculi. Osseous structures normal. Lung bases clear. IMPRESSION: 1. Nonvisualization of the previously reported bilateral punctate renal calculi. No radiographic evidence of ureteral calculi. If there is continuing concern, CT could be obtained. Electronically signed by: Ketan Samuel M.D. 01/21/2018 11:24 AM Dictated Date/Time: 01/21/2018 11:22 AM
[2018-01-21 11:29] LABS: ALBUMIN 3.9 gm/dl (3.4-5.0); CALCIUM 8.6 mg/dl (8.5-10.1); CREATININE 1.2 mg/dl (0.60-1.40); POTASSIUM 3.8 mmol/L (3.5-5.1)
[2018-01-21 11:37] LABS: TOTAL PROTEIN 7.3 gm/dl (6.4-8.2)
--- NOTE | 2018-01-21 11:42 | DIAGNOSTIC IMAGING REPORT ---
EXAMINATION: RENAL ULTRASOUND CLINICAL HISTORY: left flank pain, known stone in left kidney COMPARISON STUDY: CT scan dated 08/24/2017 FINDINGS: The right kidney measures 10.1 cm. The left kidney measures 10.6 cm. There is no evidence of hydronephrosis. No renal masses are visualized. There are tiny echogenic foci within each kidney suspicious for calculi. There is suspected hepatic steatosis. No bladder abnormalities are visualized. Bilateral ureteral jets were visualized. IMPRESSION : 1. Bilateral nephrolithiasis 2. No evidence of hydronephrosis Electronically signed by: Brock Blackwood M.D. 01/21/2018 11:41 AM Dictated Date/Time: 01/21/2018 11:39 AM
[2018-01-21] MEDS ORDERED: TAMSULOSIN HCL 0.4 MG CAP PO ONE (13:15)
[2018-01-21] MEDS ORDERED: ONDA4TAB10 SL (14:00)
[2018-01-21] MEDS ORDERED: TAMS0.4C38 PO (14:00)
[2018-01-21] MEDS ORDERED: OXYC1TAB3 PO (14:00)
[2018-01-21 14:18] VITALS: BP 166/90; PULSE 78; O2SAT 96
== END 2018-01-21 14:22 | disposition home or self-care (01) ==
LOC: C.EDB 10:13
DX: R10.9 Unspecified abdominal pain (principal); N20.0 Calculus of kidney; R31.9 Hematuria, unspecified; M54.9 Dorsalgia, unspecified; Z79.899 Other long term (current) drug therapy